=== PATIENT | male | born 1965 | race American Indian/Alaskan Native ===

== ENCOUNTER 2017-09-03 13:52 | Outpatient (CLI) | payer OTHER ==
--- NOTE | 2017-09-03 17:07 | XRay Report ---
FINAL REPORT EXAM: XR ANKLE 3+V RT HISTORY: ANKLE PAIN TECHNIQUE: Three views right ankle Comparison: None FINDINGS: Normal bony mineralization. There is a well corticated osseous fragment inferior to the right lateral fibular tip measuring 8 millimeters. There is a tug injury of the inferior lateral malleolus as well. A separate bone chip may be present in the fibular low talar space measuring 4 millimeters. There is no joint effusion. There is dorsal talar beaking. There is arterial calcification and a small mature plantar calcaneal spur. Mortise is preserved. Plafond is intact. IMPRESSION: Evidence of old deltoid ligament injury with bone chips inferior to the lateral malleolus. No definite acute findings. Mortise and plafond are unremarkable.
== END 2017-09-03 13:53 | disposition home or self-care (01) ==
LOC: SPVIMAG 13:52
PROVIDERS: ATTEND Orthopaedic Surgery
DX: M25.572 Pain in left ankle and joints of left foot (principal); M77.31 Calcaneal spur, right foot; S99.811D Other specified injuries of right ankle, subsequent encounter; X58.XXXD Exposure to other specified factors, subsequent encounter

== ENCOUNTER 2017-12-14 23:38 | Emergency (ER) | payer OTHER ==
[2017-12-14 23:57] VITALS: BP 144/91
[2017-12-14] MEDS ORDERED: ASPIRIN PO ONE (23:57)
[2017-12-15 00:27] LABS: Basophils # (Auto) 0.1 K/mm3 (0.0-0.1); Basophils % (Auto) 0.9 % (0.0-1.8); Eosinophils # (Auto) 0.3 K/mm3 (0.0-0.4); Eosinophils % (Auto) 4.1 % (0.0-4.3); Hematocrit 44.9 % (35.5-45.6); Hemoglobin 15.7 gm/dl (11.8-15.2); Lymphocytes # (Auto) 2.3 K/mm3 (1.2-5.4); Lymphocytes % (Auto) 29.9 % (13.4-35.0); Mean Corpuscular HGB Conc 35 % (32-34); Mean Corpuscular Hemoglobin 29 pg (28-32); Mean Corpuscular Volume 84 fl (84-94); Monocytes # (Auto) 0.5 K/mm3 (0.0-0.8); Monocytes % (Auto) 6.7 % (0.0-7.3); Platelet Count 189 K/mm3 (140-440); Red Blood Count 5.36 M/mm3 (3.65-5.03); Red Cell Distribution Width 14.4 % (13.2-15.2)
[2017-12-15 01:04] LABS: BUN/Creatinine Ratio 9; Blood Urea Nitrogen 11 mg/dL (9-20); Calcium 9.2 mg/dL (8.4-10.2); Hemolysis Index 8
== END 2017-12-15 01:25 | disposition left against medical advice (07) ==
LOC: ED 23:38
DX: H57.12 Ocular pain, left eye (principal); Z53.21 Procedure and treatment not carried out due to patient leaving prior to being seen by health care provider
CPT/HCPCS: 36415; 80048; 84484; 85025; 93005; 93010